=== PATIENT | female | born 1950 | race Hispanic/Latino ===

== ENCOUNTER 2018-06-13 06:32 | Emergency (ER) | payer MEDICARE ==
[2018-06-13 06:32] VITALS: BMI 27.4
[2018-06-13 06:44] VITALS: RESP 18
[2018-06-13 07:32] LABS: BASO # 0.02 K/mm3 (0.0-2.0); BASO % 0.2 % (0.0-3.0); EOS # 0.2 (0.0-0.7); EOS % 1.3 % (1.5-5.0); GRAN # 10.48 (1.4-6.5); GRAN % 81.1 % (50.0-68.0); HEMOGLOBIN 13.4 g/dL (12.0-16.0); LYMPH # 1.6 (1.2-3.4); LYMPH % 12.5 % (22.0-35.0); MEAN CELL VOLUME 92.7 fl (80.0-105.0); MEAN CORPUSCULAR HEMOGLOBIN 30.7 pg (25.0-35.0); MEAN CORPUSCULAR HGB CONC 33.1 g/dl (31.0-37.0); MEAN PLATELET VOLUME 10.6 fl (7.0-11.0); MONO # 0.6 (0.1-0.6); MONO % 4.9 % (1.0-6.0); RBC 4.37 10^6/uL (3.5-6.1); RED CELL DISTRIBUTION WIDTH 12.9 % (11.5-14.5); WHITE BLOOD COUNT 12.9 10^3/uL (4.5-11.0)
[2018-06-13 07:41] LABS: ALB/GLOB RATIO 1.6 (1.1-1.8); ALBUMIN 4.6 g/dL (3.0-4.8); CALCIUM 9.9 mg/dL (8.4-10.5)
--- NOTE | 2018-06-13 07:43 | ED PDOC ---
Arrival/HPI - General Historian: Patient - History of Present Illness Narrative History of Present Illness (Text): Patient is a 68 F with PMH HTN, HLD, DM who presents with new onset vaginal bleeding beginning this AM. Pt states that she has never had any thing like this before. She went through menopause in her late 40s and has not had a period since. She has 2 children, she did not breast feed, her first menses was at 14 and she denies any fmaily history of breast ovarian uterine or cervial cancer. Patient c/o urinary frequency, urgency and pressure in pelvic area. She denies any recent weight loss, fatigue, night sweats, MESSER, CP, SOB, fevers/chill, n/v, abdominal pain, stool changes and extremity pain/weakness. Her most recent mammogram was [facility] 2, she denies any past abnormal pap smears and is unsure of when her last pelvic exam was. 06/13/18 10:06 Time/Duration: Prior to Arrival, 1-3 hours Symptom Onset: Sudden Symptom Course: Unchanged Quality: Pressure Activities at Onset: Rest <Shannan Manzanares - Last Filed: 06/13/18 10:06> <Jarocho Carcamo - Last Filed: 06/13/18 10:19> - General Chief Complaint: Female Genitourinary Time Seen by Provider: 06/13/18 07:30 Past Medical History - Provider Review Nursing Documentation Reviewed: Yes - Past History Past History: No Previous - Infectious Disease Hx of Infectious Diseases: None - Tetanus Immunization Tetanus Immunization: Unknown - Past Medical History Past Medical History: No Previous - Cardiac Hx Hypertension: Yes Hx Pacemaker: No - Pulmonary Hx Respiratory Disorders: No Hx Bronchitis: Yes Hx Chronic Obstructive Pulmonary Disease (COPD): Yes - Neurological HX Cerebrovascular Accident: Yes - HEENT Hx HEENT Disorder: No Hx Cataracts: Yes (left eye sx) - Renal Hx Renal Disorder: No - Endocrine/Metabolic Hx Endocrine Disorders: No - Hematological/Oncological Hx Blood Transfusions: No Hx Blood Transfusion Reaction: No - Integumentary Hx Dermatological Disorder: No - Musculoskeletal/Rheumatological Hx Musculoskeletal Disorders: (3 HERNIATED DISCS) - Gastrointestinal Hx Gastrointestinal Disorders: No - Genitourinary/Gynecological Hx Genitourinary Disorders: No - Psychiatric Hx Emotional Abuse: No Hx Physical Abuse: No Hx Substance Use: No - Surgical History Hx Appendectomy: Yes Hx Cholecystectomy: Yes Other/Comment: Right oophorectomy. - Anesthesia Hx Anesthesia Reactions: Yes (SHAKING/SEVERE VOMITING AFTER GB) Hx Malignant Hyperthermia: No - Suicidal Assessment Feels Threatened In Home Enviroment: No <Olga Manzanaresah - Last Filed: 06/13/18 10:06> Family/Social History Family/Social History: No Known Family HX. denies: Neoplasm/Cancer (no family hx of uterine ovarian breast or cervical cancer) Smoking Status: Former Smoker Hx Alcohol Use: No Hx Substance Use: No Hx Substance Use Treatment: No <Shannan Manzanares - Last Filed: 06/13/18 10:06> Allergies/Home Meds <Shannan Manzanares - Last Filed: 06/13/18 10:06> <Jarocho Carcamo - Last Filed: 06/13/18 10:19> Allergies/Adverse Reactions: Allergies No Known Allergies Allergy (Verified 06/13/18 06:44) Home Medications: Home Meds Medication Instructions Recorded Confirmed Atorvastatin [Lipitor] 10 mg PO DIN 04/02/17 06/13/18 Lisinopril [Zestril] 10 mg PO QAM 04/02/17 06/13/18 Metoprolol Tartrate [Lopressor] 25 mg PO BID 04/02/17 06/13/18 Ranitidine HCl [Zantac] 150 mg PO BID 04/02/17 06/13/18 amLODIPine [Norvasc] 2.5 mg PO QAM 04/02/17 06/13/18 Glycopyrrolate/Formoterol Fum 1 puff IH BID 06/13/18 06/13/18 [Bevespi Aerosphere Inhaler] Review of Systems - Physician Review All systems were reviewed & negative as marked: Yes - Review of Systems Constitutional: absent: Fevers Respiratory: absent: SOB, Cough Cardiovascular: absent: Chest Pain Gastrointestinal: absent: Abdominal Pain, Constipation, Diarrhea, Nausea, Vomiting Genitourinary Female: Vaginal Bleeding. absent: Dysuria, Frequency, Hematuria Neurological: absent: Headache, Dizziness <Shannan Manzanares - Last Filed: 06/13/18 10:06> Physical Exam Vital Signs Reviewed: Yes Vital Signs Temp Pulse Resp BP Pulse Ox 06/13/18 06:43 98.7 F 87 18 138/55 L 98 Temperature: Afebrile Blood Pressure: Normal Pulse: Regular Respiratory Rate: Normal Appearance: Positive for: Well-Appearing, Non-Toxic, Comfortable Pain Distress: None Mental Status: Positive for: Alert and Oriented X 3 - Systems Exam Head: Present: Atraumatic, Normocephalic Extroacular Muscles: Present: EOMI Conjunctiva: Present: Normal Mouth: Present: Moist Mucous Membranes Neck: Present: Normal Range of Motion Respiratory/Chest: Present: Clear to Auscultation. No: Respiratory Distress, Accessory Muscle Use Cardiovascular: Present: Regular Rate and Rhythm, Normal S1, S2 Abdomen: No: Tenderness, Distention, Peritoneal Signs, Rebound, Guarding, Mass/Organomegaly Genitourinary/Pelvic Exam: Present: Normal External Genitalia, Cervical os Closed. No: Vaginal Bleeding, Vaginal Lesions, Adenexal Tenderness, Adenexal Mass, Cervical Motion Tendernes, Odor Back: No: CVA Tenderness Upper Extremity: Present: Normal Inspection, NORMAL PULSES. No: Cyanosis, Edema Lower Extremity: Present: Normal Inspection, NORMAL PULSES. No: Edema, CALF TENDERNESS Neurological: Present: GCS=15, CN II-XII Intact, Speech Normal Skin: Present: Warm, Dry, Normal Color. No: Rashes Psychiatric: Present: Alert, Oriented x 3, Normal Insight, Normal Concentration <Shannan Manzanares - Last Filed: 06/13/18 10:06> Vital Signs Temp Pulse Resp BP Pulse Ox 06/13/18 10:11 98.2 F 88 18 128/70 97 06/13/18 08:37 82 18 118/66 95 06/13/18 06:43 98.7 F 87 18 138/55 L 98 <Jarocho Carcamo - Last Filed: 06/13/18 10:19> Medical Decision Making ED Course and Treatment: impression: 68 yr old F with abnormal vaginal bleeding Plan: cbc cmp Transvaginal US reassess and Dispo 06/13/18 07:43 additionl orders after pelvic exam: UA urine culture 06/13/18 08:00 <Shannan Manzanares - Last Filed: 06/13/18 10:06> ED Course and Treatment: 06/13/18 08:30 Patient is a 68 year old female presenting to the emergency department complaining of vaginal bleeding. In agreement with resident note, which includes further HPI details. Patient was seen and evaluated with resident, came up with plan and treatment together. - Lab Interpretations Lab Results: Total Bilirubin 0.5 mg/dL (0.2-1.3) 06/13/18 07:10 AST 39 U/L (14-36) H D 06/13/18 07:10 ALT 37 U/L (7-56) 06/13/18 07:10 Alkaline Phosphatase 94 U/L (38-126) 06/13/18 07:10 Total Protein 7.6 g/dL (5.8-8.3) 06/13/18 07:10 Albumin 4.6 g/dL (3.0-4.8) 06/13/18 07:10 Globulin 3.0 gm/dL 06/13/18 07:10 Albumin/Globulin Ratio 1.6 (1.1-1.8) 06/13/18 07:10 Urine Color Red (YELLOW) 06/13/18 07:10 Urine Appearance Sl cloudy (CLEAR) 06/13/18 07:10 Urine pH 6.5 (4.7-8.0) 06/13/18 07:10 Ur Specific [place] 1.010 (1.005-1.035) 06/13/18 07:10 Urine Protein 100 mg/dL (<30 mg/dL) H 06/13/18 07:10 Urine Glucose (UA) Negative mg/dL (NEGATIVE) 06/13/18 07:10 Urine Ketones Negative mg/dL (NEGATIVE) 06/13/18 07:10 Urine Blood Large (NEGATIVE) H 06/13/18 07:10 Urine Nitrate Positive (NEGATIVE) H 06/13/18 07:10 Urine Bilirubin Negative (NEGATIVE) 06/13/18 07:10 Urine Urobilinogen 0.2 E.U./dL (<1 E.U./dL) 06/13/18 07:10 Ur Leukocyte Esterase Large [place]/uL (NEGATIVE) H 06/13/18 07:10 Urine RBC 25 - 30 /hpf (0-2) H 06/13/18 07:10 Urine WBC 25 - 30 /hpf (0-6) H 06/13/18 07:10 Ur Epithelial Cells 3 - 4 /hpf (0-5) 06/13/18 07:10 Amorphous Sediment Few /hpf (NONE) 06/13/18 07:10 Urine Bacteria Many /hpf (NONE) 06/13/18 07:10 Urine Other Uyeast /hpf 06/13/18 07:10 - RAD Interpretation Radiology Orders: 06/13/18 07:59 TRANSVAGINAL [US] Stat 06/13/18 08:59 ABD & PELVIS W/O PO OR IV CONT [CT] Stat - Medication Orders Current Medication Orders: Discontinued Medications Ciprofloxacin (Cipro) 500 mg PO ONCE STA; Protocol Stop: 06/13/18 09:02 Last Admin: 06/13/18 10:07 Dose: 500 mg <Jarocho Carcamo - Last Filed: 06/13/18 10:19> - PA / SURGERY TEACHER / Resident Statement / has reviewed & agrees with the documentation as recorded. / has examined the patient and agrees with the treatment plan. - Scribe Statement The provider has reviewed the documentation as recorded by the Anamariaibconor Capps All medical record entries made by the Scribe were at my direction and personally dictated by me. I have reviewed the chart and agree that the record accurately reflects my personal performance of the history, physical exam, medical decision making, and the department course for this patient. I have also personally directed, reviewed, and agree with the discharge instructions and disposition. <Jarocho Carcamo - Last Filed: 06/13/18 10:19> Disposition/Present on Arrival - Present on Arrival Any Indicators Present on Arrival: No History of DVT/PE: No History of Uncontrolled Diabetes: No Urinary Catheter: No History of Decub. Ulcer: No History Surgical Site Infection Following: None - Disposition Have Diagnosis and Disposition been Completed?: Yes Disposition Time: 10:12 Patient Plan: Discharge <Shannan Manzanares - Last Filed: 06/13/18 10:06> <Jarocho Carcamo - Last Filed: 06/13/18 10:19> - Disposition Diagnosis: UTI (urinary tract infection), Abnormal uterine bleeding (AUB), Kidney stone on left side Disposition: HOME/ ROUTINE Patient Problems: Current Active Problems Problem Status Onset UTI (urinary tract infection) Acute Abnormal uterine bleeding (AUB) Acute Kidney stone on left side Acute Condition: STABLE Discharge Instructions (ExitCare): Kidney Stones (DC), Urinary Tract Infection, Adult (DC), Kidney Infection (DC) Additional Instructions: Upon discharge please follow up with your primary care physician within 3-5 days of discharge You have been given a referral to a guide plant, Dr. Houser for further evaluation of your abnormal uterine bleeding and abnormal ultrasound results. PLease call the office number provided and make an appointment for follow up. You have been given a prescription for an antibiotic, Ciprofloxacin 500 mg to be taken by mouth every 12 hours for 7 days. Please complete all of the antibiotics prescribed. If your symptoms worsen/return or if new symptoms recurr please return to the [facility] ER immediately for further evaluation. Referrals: Antonette Cannon MD [Primary Care Provider] - Follow up with primary Ravi Houser MD [Staff Provider] - Follow up with primary Forms: [employer] (Lao)
[2018-06-13 07:45] LABS: PH,URINE 6.5 (4.7-8.0); URINE BILIRUBIN NEGATIVE (NEGATIVE); URINE BLOOD LARGE (NEGATIVE); URINE GLUCOSE (UA) NEGATIVE (NEGATIVE); URINE LEUKOCYTE ESTERASE LARGE Leu/uL (NEGATIVE); URINE PROTEIN 100 mg/dL (<30 mg/dL); URINE UROBILINOGEN 0.2 E.U./dL (<1 E.U./dL)
[2018-06-13 07:51] LABS: URINE APPEARANCE SL CLOUDY (CLEAR); URINE COLOR RED (YELLOW)
[2018-06-13 07:56] LABS: URINE RBC 25 - 30 /hpf (0-2); URINE WBC 25 - 30 /hpf (0-6)
[2018-06-13 07:57] LABS: URINE AMORPHOUS SEDIMENT FEW /hpf; URINE BACTERIA MANY /hpf
--- NOTE | 2018-06-13 09:02 | US ---
Date of service: 06/13/2018 HISTORY: vaginal bleeding COMPARISON: None available. TECHNIQUE: Transabdominal and transvaginal pelvic ultrasound was performed with longitudinal and transverse images submitted for interpretation. FINDINGS: UTERUS: Measures 6.5 x 3.9 x 5.4 cm. Uterus is normal in size. Overall myometrial pattern is unremarkable diffusely. ENDOMETRIUM: Measures 16.0 mm in diameter. The endometrium is thickened and heterogeneous in overall echogenicity with cystic and solid components within the endometrial cavity. Consider possible hemorrhage at various stages of degradation versus potential complex solid and cystic mass/polyp. CERVIX: No cervical abnormality identified. RIGHT OVARY: Not identified. No suspicious adnexal mass or fluid collection appreciable. Patient reports prior right oophorectomy. LEFT OVARY: Not identified. No suspicious adnexal mass or fluid collection appreciable. FREE FLUID: No significant free fluid noted. OTHER FINDINGS: None. IMPRESSION: 1. Abnormally thickened endometrium to 16.0 mm which is completely abnormal for a postmenopausal patient. Heterogeneous echotexture within the lumen may indicate hemorrhagic products at various stages of degradation or possible mass. Gynecological follow-up advised. MRI without gadolinium can be utilized for added characterization if clinically warranted. 2. Neither ovary is identified in this patient who reports prior right oophorectomy but not at the left. No suspicious adnexal mass or fluid collection identified bilaterally.
--- NOTE | 2018-06-13 09:47 | CT ---
Date of service: 06/13/2018 PROCEDURE: CT Abdomen and Pelvis without intravenous contrast HISTORY: painless hematuria COMPARISON: None. TECHNIQUE: Without contrast.. Contrast dose: Radiation dose: Total exam DLP = 661.15 mGy-cm. This CT exam was performed using one or more of the following dose reduction techniques: Automated exposure control, adjustment of the mA and/or kV according to patient size, and/or use of iterative reconstruction technique. FINDINGS: LOWER THORAX: Unremarkable. LIVER: Unremarkable. No gross lesion or ductal dilatation. GALLBLADDER AND BILE DUCTS: Gallbladder removed PANCREAS: Unremarkable. No gross lesion or ductal dilatation. SPLEEN: Unremarkable. ADRENALS: Unremarkable. No mass. KIDNEYS AND URETERS: There is a 5 mm stone in the upper pole of the left kidney. VASCULATURE: Unremarkable. No aortic aneurysm. Aortic calcification. BOWEL: Unremarkable. No obstruction. No gross mural thickening. There is diverticulosis of the sigmoid colon APPENDIX: Unremarkable. Normal appendix. PERITONEUM: Unremarkable. No free fluid. No free air. LYMPH NODES: Unremarkable. No enlarged lymph nodes. BLADDER: Unremarkable. REPRODUCTIVE: Unremarkable. BONES: Multilevel disc degeneration OTHER FINDINGS: None. IMPRESSION: Nonobstructing 5 mm stone in the left kidney
[2018-06-13 10:12] VITALS: BP 128/70; PULSE 88; O2SAT 97
[2018-06-13 10:14] VITALS: TEMP 98.2
== END 2018-06-13 10:33 | disposition home or self-care (01) ==
LOC: ED 06:32
DX: N20.0 Calculus of kidney (principal); N39.0 Urinary tract infection, site not specified; N93.9 Abnormal uterine and vaginal bleeding, unspecified; E78.5 Hyperlipidemia, unspecified; E11.9 Type 2 diabetes mellitus without complications; I10 Essential (primary) hypertension; Z87.891 Personal history of nicotine dependence